=== PATIENT | female | born 1950 | race Asian ===

== ENCOUNTER 2021-07-14 14:37 | Inpatient (IN) | payer OTHER ==
[~2021-07-14] VITALS: Ht 157.5 cm; Wt 64.4 kg
[~2021-07-14 14:37] MED LIST: methylPREDNISolone SOD SUCC 40 MG/ML VL IV SCH
[2021-07-14] MEDS ORDERED: methylPREDNISolone SOD SUCC 125 MG/2 ML VL IV ONE (15:15)
[2021-07-14 15:47] LABS: Basophils # (auto) 0.2 10 ^3/uL (0-0.2); Basophils % (auto) 2.6 % (0.0-2.0); Eosinophils # (auto) 0.6 10 ^3/uL (0-0.8); Eosinophils % (auto) 9.5 % (0.0-7.0); Hemoglobin 15.2 g/dL (12.2-16.2); Lymphocytes # (auto) 2.2 10 ^3/uL (0.4-5.4); Lymphocytes % (auto) 35.2 % (10.0-50.0); Mean Corpuscular Hemoglobin 28.2 pg (28.0-32.0); Mean Corpuscular Hgb Conc. 33.1 g/dL (32.0-36.0); Mean Corpuscular Volume 85.4 fL (80.0-100.0); Monocytes # (auto) 0.3 10 ^3/uL (0-1.3); Monocytes % (auto) 4.8 % (0.0-12.0); Neutrophils # (auto) 2.9 10 ^3/uL (1.6-8.6); Neutrophils % (auto) 47.9 % (37.0-80.0); Nucleated Red Blood Cells % 0.1 %; Red Blood Cells 5.39 10^6/uL (4.0-5.20); White Blood Cell 6.1 10^3/uL (4.4-10.8)
[2021-07-14 16:15] LABS: Alanine Aminotransferase 21 U/L (13-56); Alkaline Phosphatase 103 U/L (45-117); Anion Gap 4 (5-15); Aspartate Aminotransferase 19 U/L (15-37); BUN/Creatinine Ratio 18.3; Blood Urea Nitrogen 13 mg/dL (7-18); Carbon Dioxide 26 mmol/L (21-32); Chloride 107 mmol/L (98-107); GFR African American 105 mL/min; GFR Non-African American 87 mL/min; Glucose 105 mg/dL (74-106); Potassium 3.8 mmol/L (3.5-5.1); Sodium 137 mmol/L (136-145)
[2021-07-14 16:16] LABS: Albumin 3.9 g/dL (3.4-5.0); Bilirubin, Total 0.4 mg/dL (0.2-1.0); Magnesium 2.4 mg/dL (1.6-2.6); Total Protein 7.8 g/dL (6.4-8.2)
[2021-07-14] MEDS ORDERED: cloNIDine HCL 0.1 MG TAB PO ONE (16:30)
[2021-07-14] MEDS ORDERED: ACETAMINOPHEN 325 MG TAB PO PRN ×2 (19:00)
[2021-07-14] MEDS ORDERED: MORPHINE SULFATE 4 MG/ML SYR/VIAL IV PRN (19:00)
[2021-07-14] MEDS ORDERED: DOCUSATE SOD 100 MG CAP PO PRN (19:00)
[2021-07-14] MEDS ORDERED: NITROGLYCERIN 0.4 MG SL TAB SL PRN (19:00)
[2021-07-14] MEDS ORDERED: HYDROcodone-ACET 5/325MG TAB PO PRN (19:00)
[2021-07-14] MEDS ORDERED: AZITHROMYCIN 500MG/ 250ML 250 ML IV ONE (19:15)
[2021-07-14] MEDS ORDERED: cefTRIAXone 1GM/50ML D5W 50 ML IV ONE (19:15)
[2021-07-14] MEDS ORDERED: ALBUTEROL SULF 2.5 MG/0.5ML(0.5%) NEB SOLN NEB PRN (19:15)
[2021-07-14] MEDS ORDERED: hydrALAZINE HCL 20 MG/ML VL IV PRN (19:15)
[2021-07-14 19:57] LABS: Phosphorus 2.4 mg/dL (2.5-4.90)
[2021-07-14 20:27] VITALS: BP 118/58
[2021-07-14] MEDS: SODIUM CHLOR 0.9% PF (SALINE LOCK) 10ML VIAL/SYR IV SCH (23:20)
[2021-07-14] MEDS: guaiFENesin 200 MG/10 ML UD PO PRN (23:58)
[2021-07-14] MEDS: TEMAZEPAM 15 MG CAP PO PRN (23:58)
[2021-07-15] MEDS: ONDANSETRON HCL 4 MG/2 ML VIAL IV PRN ×2 (00:51→20:44)
[2021-07-15 01:27] VITALS: BP 132/72
[2021-07-15] MEDS ORDERED: MONT-8 PO (02:14)
[2021-07-15] MEDS ORDERED: ALBUAER3 IN (02:18)
[2021-07-15] MEDS: LACTATED RINGER'S 1,000 ML IV SCH ×2 (03:15→09:51)
[2021-07-15 05:00] VITALS: BP_SYST 141; BP_SYST 98; BP_DIAS 69; BP_DIAS 82
[2021-07-15 05:14] LABS: Basophils # (auto) 0 10 ^3/uL (0-0.2); Basophils % (auto) 0.2 % (0.0-2.0); Eosinophils # (auto) 0 10 ^3/uL (0-0.8); Hematocrit 38.5 % (36.0-46.0); Hemoglobin 13.2 g/dL (12.2-16.2); Lymphocytes % (auto) 14.3 % (10.0-50.0); Mean Corpuscular Hemoglobin 28.7 pg (28.0-32.0); Mean Corpuscular Hgb Conc. 34.1 g/dL (32.0-36.0); Monocytes # (auto) 0.1 10 ^3/uL (0-1.3); Monocytes % (auto) 1.1 % (0.0-12.0); Neutrophils # (auto) 5.6 10 ^3/uL (1.6-8.6); Neutrophils % (auto) 84.4 % (37.0-80.0); Nucleated Red Blood Cells % 0.1 %; Red Blood Cells 4.59 10^6/uL (4.0-5.20); Red Cell Distribution Width 13.1 % (11.8-14.3); White Blood Cell 6.7 10^3/uL (4.4-10.8)
[2021-07-15] MEDS: SODIUM CHLOR 0.9% PF (SALINE LOCK) 10ML VIAL/SYR IV SCH ×3 (05:20→20:43)
[2021-07-15 05:51] LABS: Albumin 3.2 g/dL (3.4-5.0); Calcium 9.1 mg/dL (8.5-10.1); Potassium 4.1 mmol/L (3.5-5.1)
[2021-07-15 05:53] LABS: BUN/Creatinine Ratio 24.2
[2021-07-15 06:07] LABS: Bilirubin, Total 0.3 mg/dL (0.2-1.0); Total Protein 6.4 g/dL (6.4-8.2)
[2021-07-15 09:00] VITALS: BP 96/54
[2021-07-15] MEDS: methylPREDNISolone SOD SUCC 40 MG/ML VL IV SCH ×2 (09:42→20:44)
[2021-07-15] MEDS: ENOXAPARIN SOD 40 MG/0.4 ML SYRINGE SC SCH (09:42)
[2021-07-15] MEDS: PANTOPRAZOLE 40 MG/10 ML VIAL INJ IV SCH (09:42)
[2021-07-15] MEDS ORDERED: ENOXAPARIN SOD 30 MG/0.3 ML SYRINGE SC SCH (10:00)
[2021-07-15] MEDS: guaiFENesin 200 MG/10 ML UD PO PRN ×2 (11:09→18:24)
[2021-07-15 13:00] VITALS: BP 96/58
[2021-07-15 17:00] VITALS: BP 96/55
[2021-07-15] MEDS: IPRATROPIUM BROM 0.5 MG/2.5ML INH SOL NEB SCH ×2 (18:00→18:15)
[2021-07-15] MEDS: ALBUTEROL SULF 2.5 MG/0.5ML(0.5%) NEB SOLN NEB SCH ×2 (18:00→18:15)
[2021-07-15] MEDS: TEMAZEPAM 15 MG CAP PO PRN (20:44)
[2021-07-15] MEDS ORDERED: cefTRIAXone 1GM/50ML D5W 50 ML IV SCH (21:00)
[2021-07-15 22:00] VITALS: BP 106/51
[2021-07-15] MEDS ORDERED: AZITHROMYCIN 500MG/ 250ML 250 ML IV SCH (22:00)
[2021-07-16 05:00] VITALS: BP 126/74
[2021-07-16] MEDS: SODIUM CHLOR 0.9% PF (SALINE LOCK) 10ML VIAL/SYR IV SCH ×2 (05:35→14:19)
[2021-07-16] MEDS: PANTOPRAZOLE 40 MG/10 ML VIAL INJ IV SCH (08:37)
[2021-07-16] MEDS: ENOXAPARIN SOD 40 MG/0.4 ML SYRINGE SC SCH (08:38)
[2021-07-16] MEDS: methylPREDNISolone SOD SUCC 40 MG/ML VL IV SCH (08:38)
[2021-07-16] MEDS: guaiFENesin 200 MG/10 ML UD PO PRN ×2 (08:46→15:47)
[2021-07-16 09:00] VITALS: BP 110/59
[2021-07-16 13:00] VITALS: BP 115/63
[2021-07-16 17:00] VITALS: BP 125/66
[2021-07-16 18:46] VITALS: BP 118/58
== END 2021-07-16 19:05 | disposition home or self-care (01) | DRG 202 ==
LOC: ER 14:37 → TELE 18:55 → TELE-WESTW 21:40
PROVIDERS: ADMIT Registered Nurse; ATTEND Registered Nurse
DX: J45.41 Moderate persistent asthma with (acute) exacerbation (principal); J18.9 Pneumonia, unspecified organism; E44.0 Moderate protein-calorie malnutrition; J98.11 Atelectasis; E83.39 Other disorders of phosphorus metabolism; E88.09 Other disorders of plasma-protein metabolism, not elsewhere classified; I10 Essential (primary) hypertension; Z20.822 Contact with and (suspected) exposure to COVID-19; J20.9 Acute bronchitis, unspecified; K21.9 Gastro-esophageal reflux disease without esophagitis; Z82.5 Family history of asthma and other chronic lower respiratory diseases; Z68.26 Body mass index [BMI] 26.0-26.9, adult; Z87.01 Personal history of pneumonia (recurrent)
CPT/HCPCS: 36415; 71045; 80053; 80061; 83036; 83605; 83735; 83880; 84100; 84484; 85025; 85379; 87040; 87426; 93005; 94640; 96374; C9113; G0378; J0696; J2405

== ENCOUNTER 2022-10-11 06:44 | Inpatient (IN) | payer OTHER, MEDICARE ==
[~2022-10-11] VITALS: Ht 157.5 cm; Wt 66.3 kg
[~2022-10-11 06:44] MED LIST changes: +ALBUAER3 IN; +MONT-8 PO; -methylPREDNISolone SOD SUCC 40 MG/ML VL IV SCH
[2022-10-11 07:52] LABS: Basophils # (auto) 0.1 10 ^3/uL (0-0.2); Basophils % (auto) 1.3 % (0.0-2.0); Eosinophils # (auto) 0.2 10 ^3/uL (0-0.8); Eosinophils % (auto) 4.2 % (0.0-7.0); Hematocrit 46.5 % (36.0-46.0); Hemoglobin 15.7 g/dL (12.2-16.2); Lymphocytes % (auto) 38.3 % (10.0-50.0); Mean Corpuscular Hemoglobin 28.7 pg (28.0-32.0); Mean Corpuscular Hgb Conc. 33.7 g/dL (32.0-36.0); Monocytes # (auto) 0.4 10 ^3/uL (0-1.3); Monocytes % (auto) 6.7 % (0.0-12.0); Neutrophils # (auto) 2.6 10 ^3/uL (1.6-8.6); Neutrophils % (auto) 49.5 % (37.0-80.0); Nucleated Red Blood Cells % 0.3 %; Red Blood Cells 5.47 10^6/uL (4.0-5.20); Red Cell Distribution Width 12.8 % (11.8-14.3); White Blood Cell 5.3 10^3/uL (4.4-10.8)
[2022-10-11 08:03] LABS: Albumin 3.8 g/dL (3.4-5.0); Calcium 9.3 mg/dL (8.5-10.1); Magnesium 2.2 mg/dL (1.6-2.6); Potassium 3.8 mmol/L (3.5-5.1)
[2022-10-11 08:09] LABS: BUN/Creatinine Ratio 15.2 (10.0-20.0); Bilirubin, Total 0.4 mg/dL (0.2-1.0); Total Protein 7.1 g/dL (6.4-8.2)
[2022-10-11 10:03] LABS: Urine Bacteria FEW /hpf (None Seen); Urine Blood TRACE /uL (Negative); Urine Hyaline Cast FEW /lpf (0 - 2); Urine Mucus FEW (None Seen); Urine Specific Gravity 1.017 (1.001-1.035); Urine WBC 15 /hpf (0 - 5)
[2022-10-11] MEDS ORDERED: IPRATROPIUM BROM 0.5 MG/2.5ML INH SOL NEB PRN (11:15)
[2022-10-11] MEDS ORDERED: ALBUTEROL SULF 2.5 MG/0.5ML(0.5%) NEB SOLN NEB PRN (11:15)
[2022-10-11 11:39] LABS: Magnesium 2.2 mg/dL (1.6-2.6)
[2022-10-11 11:44] LABS: INR 0.93 (0.9-1.15)
[2022-10-11 11:45] LABS: Phosphorus 2.8 mg/dL (2.5-4.90)
[2022-10-11 15:39] VITALS: BP 143/86
[2022-10-11] MEDS ORDERED: ATORVASTATIN 20 MG TAB PO SCH (22:00)
[2022-10-12 05:56] VITALS: BP 145/76
[2022-10-12 06:06] LABS: RPR Non Reactive (Non Reactive)
[2022-10-12 08:00] VITALS: BP_SYST 108; BP_SYST 132; BP_DIAS 52; BP_DIAS 69
[2022-10-12] MEDS: ASPirin 81 mg TAB PO SCH (08:51)
[2022-10-12] MEDS: LOSARTAN POTASSIUM 25 MG TAB PO SCH (10:00)
[2022-10-12] MEDS ORDERED: PANTOPRAZOLE 40 MG/10 ML VIAL INJ IV SCH (10:00)
[2022-10-12] MEDS ORDERED: ALBUTEROL SULF 2.5 MG/0.5ML(0.5%) NEB SOLN NEB PRN (11:15)
[2022-10-12] MEDS ORDERED: cefTRIAXone 1GM/50ML D5W 50 ML IV ONE (11:15)
[2022-10-12] MEDS ORDERED: LORazepam 2MG/ML-1ML VIAL IV PRN (11:15)
[2022-10-12 12:00] VITALS: BP 132/69
[2022-10-12] MEDS ORDERED: IOHEXOL 350 MG/ML 100ML IJ ONE (15:48)
[2022-10-12 16:00] VITALS: BP 142/51
[2022-10-12] MEDS: MONTELUKAST SODIUM 10 MG TAB PO SCH (22:51)
[2022-10-12] MEDS: ATORVASTATIN 20 MG TAB PO SCH (22:52)
[2022-10-13 05:00] VITALS: BP 142/99
[2022-10-13 06:06] LABS: Potassium 3.7 mmol/L (3.5-5.1)
[2022-10-13 06:12] LABS: BUN/Creatinine Ratio 32.4 (10.0-20.0)
[2022-10-13 07:33] LABS: Basophils # (auto) 0.1 10 ^3/uL (0-0.2); Eosinophils # (auto) 0.3 10 ^3/uL (0-0.8); Eosinophils % (auto) 4.5 % (0.0-7.0); Hematocrit 44.6 % (36.0-46.0); Hemoglobin 14.9 g/dL (12.2-16.2); Lymphocytes # (auto) 2.9 10 ^3/uL (0.4-5.4); Mean Corpuscular Hemoglobin 28.4 pg (28.0-32.0); Mean Corpuscular Hgb Conc. 33.5 g/dL (32.0-36.0); Monocytes # (auto) 0.4 10 ^3/uL (0-1.3); Monocytes % (auto) 7.8 % (0.0-12.0); Neutrophils # (auto) 2.1 10 ^3/uL (1.6-8.6); Neutrophils % (auto) 36.7 % (37.0-80.0); Nucleated Red Blood Cells % 0.1 %; Red Blood Cells 5.24 10^6/uL (4.0-5.20); Red Cell Distribution Width 12.9 % (11.8-14.3); White Blood Cell 5.8 10^3/uL (4.4-10.8)
[2022-10-13 09:00] VITALS: BP 126/67
[2022-10-13] MEDS ORDERED: IOHEXOL 350 MG/ML 100ML IJ ONE (09:53)
[2022-10-13] MEDS: cefTRIAXone 1GM/50ML D5W 50 ML IV SCH (11:02)
[2022-10-13] MEDS: ASPirin 81 mg TAB PO SCH (11:02)
[2022-10-13] MEDS: LOSARTAN POTASSIUM 25 MG TAB PO SCH (11:03)
[2022-10-13 12:47] VITALS: BP 134/80
[2022-10-13] MEDS: MONTELUKAST SODIUM 10 MG TAB PO SCH (21:26)
[2022-10-13] MEDS: ATORVASTATIN 20 MG TAB PO SCH (21:26)
[2022-10-13 22:00] VITALS: BP 122/70
[2022-10-14 05:11] VITALS: BP 115/71
[2022-10-14 09:24] VITALS: BP 142/81
[2022-10-14] MEDS: cefTRIAXone 1GM/50ML D5W 50 ML IV SCH (09:24)
[2022-10-14] MEDS: ASPirin 81 mg TAB PO SCH (09:24)
[2022-10-14] MEDS: LOSARTAN POTASSIUM 25 MG TAB PO SCH (09:26)
[2022-10-14] MEDS ORDERED: CLOP75TA28 PO (11:34)
[2022-10-14] MEDS ORDERED: ATOR20TA PO (11:34)
[2022-10-14] MEDS ORDERED: NITR-87 PO (11:34)
[2022-10-14] MEDS ORDERED: ASPI1TAB20 PO (11:34)
[2022-10-14 12:50] VITALS: BP 130/81
[2022-10-14 14:19] VITALS: BP 130/81
== END 2022-10-14 16:37 | disposition home or self-care (01) | DRG 65 ==
LOC: ER 06:44 → TELE 11:14 → TELE-CENTR 10-12 05:45
PROVIDERS: ADMIT Nurse Practitioner Family; ATTEND Internal Medicine
DX: I63.59 Cerebral infarction due to unspecified occlusion or stenosis of other cerebral artery (principal); N39.0 Urinary tract infection, site not specified; I63.511 Cerebral infarction due to unspecified occlusion or stenosis of right middle cerebral artery; I10 Essential (primary) hypertension; J45.909 Unspecified asthma, uncomplicated; K21.9 Gastro-esophageal reflux disease without esophagitis; I65.29 Occlusion and stenosis of unspecified carotid artery; E04.2 Nontoxic multinodular goiter; R29.700 NIHSS score 0; E66.01 Morbid (severe) obesity due to excess calories; Z82.5 Family history of asthma and other chronic lower respiratory diseases; Z68.39 Body mass index [BMI] 39.0-39.9, adult; Z79.82 Long term (current) use of aspirin; Z79.02 Long term (current) use of antithrombotics/antiplatelets
CPT/HCPCS: 36415; 70450; 70496; 70551; 71045; 80048; 80053; 80061; 81001; 83036; 83735; 83880; 84100; 84443; 84484; 85025; 85610; 85652; 86592; 87086; 93005; 93306; 93886; 96365; 96375; 97116; 97163; 97530; C9113; G0378; J0696

== ENCOUNTER 2023-09-13 08:39 | Emergency (ER) | payer OTHER, MEDICARE ==
[~2023-09-13] VITALS: Ht 154.9 cm; Wt 64.9 kg
[~2023-09-13 08:39] MED LIST changes: +ASPI1TAB20 PO; +ATOR20TA PO; +CLOP75TA28 PO; +NITR-87 PO
[2023-09-13 09:29] VITALS: BP 163/100; PULSE 67; RESP 16; TEMP 98; O2SAT 97
[2023-09-13] MEDS: ACETAMINOPHEN 500 MG TAB PO ONE (10:01)
[2023-09-13] MEDS ORDERED: MELO7.5T7 PO (10:25)
== END 2023-09-13 10:30 | disposition home or self-care (01) ==
LOC: ER 08:39
DX: M17.12 Unilateral primary osteoarthritis, left knee (principal); I10 Essential (primary) hypertension; J45.909 Unspecified asthma, uncomplicated; E78.5 Hyperlipidemia, unspecified; K21.9 Gastro-esophageal reflux disease without esophagitis; Z98.890 Other specified postprocedural states; Z79.899 Other long term (current) drug therapy
CPT/HCPCS: 73562